=== PATIENT | female | born 1980 | race Caucasian/White ===

== ENCOUNTER 2020-09-23 19:37 | Emergency (ER) | payer MEDICAID ==
[~2020-09-23] VITALS: Ht 165.1 cm; Wt 104.3 kg
[2020-09-23] MEDS ORDERED: ONDANSETRON ODT 4 MG TAB PO ONE (20:30)
[2020-09-23] MEDS ORDERED: cefTRIAXone SOD 1,000 MG VL IM ONE (20:30)
[2020-09-23] MEDS ORDERED: MORPHINE SULF INJ 2 MG/ML SYRINGE 1ML IM ONE (20:30)
[2020-09-23] MEDS ORDERED: LIDOCAINE 1% HCL (LOCAL ANESTH.) INJ 20ML MDV ONE (20:36)
[2020-09-23] MEDS ORDERED: LIDOCAINE 1% HCL (LOCAL ANESTH.) INJ 20ML MDV IJ ONE (21:00)
[2020-09-23 23:49] VITALS: BP 133/88
== END 2020-09-23 23:53 | disposition home or self-care (01) ==
LOC: ER 19:37
DX: T24.231A Burn of second degree of right lower leg, initial encounter (principal); X08.8XXA Exposure to other specified smoke, fire and flames, initial encounter; Y93.89 Activity, other specified; Y92.89 Other specified places as the place of occurrence of the external cause; Y99.8 Other external cause status
CPT/HCPCS: 96372; 99284; J0696; J2001; J2270; Q0162

== ENCOUNTER 2021-08-14 09:18 | Inpatient (IN) | payer MEDICAID ==
[~2021-08-14] VITALS: Ht 162.6 cm; Wt 126.2 kg
[2021-08-14 10:21] LABS: Basophils # (auto) 0 10 ^3/uL (0-0.2); Basophils % (auto) 0.4 % (0.0-2.0); Eosinophils # (auto) 0 10 ^3/uL (0-0.8); Hematocrit 39.3 % (36.0-46.0); Hemoglobin 12.8 g/dL (12.2-16.2); Lymphocytes # (auto) 0.7 10 ^3/uL (0.4-5.4); Mean Corpuscular Hemoglobin 25.1 pg (28.0-32.0); Mean Corpuscular Hgb Conc. 32.4 g/dL (32.0-36.0); Mean Corpuscular Volume 77.3 fL (80.0-100.0); Monocytes # (auto) 0.3 10 ^3/uL (0-1.3); Monocytes % (auto) 5.8 % (0.0-12.0); Neutrophils # (auto) 3.6 10 ^3/uL (1.6-8.6); Neutrophils % (auto) 78.8 % (37.0-80.0); Nucleated Red Blood Cells % 0.3 %; Red Blood Cells 5.09 10^6/uL (4.0-5.20); Red Cell Distribution Width 15.8 % (11.8-14.3); White Blood Cell 4.6 10^3/uL (4.4-10.8)
[2021-08-14 10:27] LABS: Anion Gap 8 (5-15); Blood Urea Nitrogen 16 mg/dL (7-18); Calcium 8.1 mg/dL (8.5-10.1); Carbon Dioxide 23 mmol/L (21-32); Chloride 103 mmol/L (98-107); Glucose 200 mg/dL (74-106); Potassium 3.4 mmol/L (3.5-5.1); Sodium 134 mmol/L (136-145)
[2021-08-14 10:35] LABS: Alanine Aminotransferase 65 U/L (13-56); Alkaline Phosphatase 121 U/L (45-117); Aspartate Aminotransferase 100 U/L (15-37); BUN/Creatinine Ratio 16.3; Bilirubin, Total 0.6 mg/dL (0.2-1.0); GFR African American 81 mL/min; GFR Non-African American 67 mL/min; Total Protein 7.6 g/dL (6.4-8.2)
[2021-08-14 10:48] LABS: Urine WBC None Seen /hpf (0 - 5)
[2021-08-14] MEDS ORDERED: CHOLECALCIFEROL (VITD3) 2,000 UNIT CAP/TAB PO ONE (11:00)
[2021-08-14] MEDS ORDERED: cefTRIAXone 1GM/50ML D5W 50 ML IV ONE (11:00)
[2021-08-14] MEDS ORDERED: ASCORBIC ACID 500 MG TAB PO ONE (11:00)
[2021-08-14] MEDS ORDERED: AZITHROMYCIN 500MG/ 250ML 250 ML IV ONE (11:00)
[2021-08-14] MEDS ORDERED: DexAMETHasone SOD PHOS 10MG/1ML VIAL INJ IV ONE (11:00)
[2021-08-14] MEDS ORDERED: ZINC SULFATE 220mg CAP or TAB PO ONE (11:00)
[2021-08-14 11:01] LABS: INR 0.99 (0.9-1.15); Partial Thromboplastin Time 27.6 sec (23.6-33.0)
[2021-08-14 11:08] LABS: Urine Bacteria FEW /hpf (None Seen); Urine Blood Negative /uL (Negative); Urine Mucus FEW (None Seen); Urine Specific Gravity 1.022 (1.001-1.035)
[2021-08-14] MEDS ORDERED: POTASSIUM EFFERVESENT TAB 25 MEQ PO ONE (11:15)
[2021-08-14] MEDS ORDERED: NITROGLYCERIN 0.4 MG SL TAB SL PRN (12:15)
[2021-08-14] MEDS ORDERED: ALBUTEROL SULF HFA 90MCG INH 200DOSE IN PRN (12:15)
[2021-08-14] MEDS ORDERED: REMDESIVIR PER PHARMACY 0 ML IV SCH (12:15)
[2021-08-14] MEDS ORDERED: HYDROcodone-ACET 5/325MG TAB PO PRN (12:15)
[2021-08-14] MEDS ORDERED: ONDANSETRON HCL 4 MG/2 ML VIAL IV PRN (12:15)
[2021-08-14] MEDS ORDERED: MORPHINE SULFATE INJECTION 2 MG/ML SYRG IV PRN (12:15)
[2021-08-14] MEDS ORDERED: ACETAMINOPHEN 500 MG TAB PO PRN (12:15)
[2021-08-14] MEDS ORDERED: REMDESIVIR 200 MG in NS 210ml LOADING DOSE ADULT IV ONE (20:30)
[2021-08-14 22:00] VITALS: BP 96/64
[2021-08-14] MEDS: fentaNYL Drip 2500mCg/250mlNS 250 ML IV SCH (22:20)
[2021-08-14] MEDS: ENOXAPARIN SOD 40 MG/0.4 ML SYRINGE SC SCH (22:22)
[2021-08-15] VITALS (25 sets, daily range): BP systolic 92–196; BP diastolic 52–115
[2021-08-15] MEDS ORDERED: SIMV10TA84 PO (01:45)
[2021-08-15] MEDS ORDERED: CYCL-839 PO (01:45)
[2021-08-15] MEDS ORDERED: CHOL20007 PO (01:45)
[2021-08-15] MEDS ORDERED: OMEP20TA PO (01:45)
[2021-08-15] MEDS ORDERED: FERR-20 PO (01:45)
[2021-08-15] MEDS ORDERED: AMIT1TAB34 PO (01:45)
[2021-08-15] MEDS ORDERED: HYDR12.56 PO (01:45)
[2021-08-15] MEDS ORDERED: SULI150T38 PO (01:45)
[2021-08-15] MEDS ORDERED: ACE3T PO (01:45)
[2021-08-15] MEDS ORDERED: LORA-622 PO (01:45)
[2021-08-15] MEDS ORDERED: LEV100T PO (01:45)
[2021-08-15] MEDS ORDERED: MONT-8 PO (01:45)
[2021-08-15] MEDS ORDERED: TOPI25CA5 PO (01:45)
[2021-08-15 06:09] LABS: Basophils # (auto) 0 10 ^3/uL (0-0.2); Eosinophils # (auto) 0 10 ^3/uL (0-0.8); Eosinophils % (auto) 0.1 % (0.0-7.0); Lymphocytes # (auto) 0.8 10 ^3/uL (0.4-5.4); Nucleated Red Blood Cells % 0.1 %
[2021-08-15 06:12] LABS: Basophils % (auto) 0.6 % (0.0-2.0); Hematocrit 37.2 % (36.0-46.0); Hemoglobin 12.3 g/dL (12.2-16.2); Lymphocytes % (auto) 14.2 % (10.0-50.0); Mean Corpuscular Hemoglobin 25.7 pg (28.0-32.0); Mean Corpuscular Hgb Conc. 33.2 g/dL (32.0-36.0); Mean Corpuscular Volume 77.5 fL (80.0-100.0); Monocytes # (auto) 0.5 10 ^3/uL (0-1.3); Monocytes % (auto) 7.7 % (0.0-12.0); Neutrophils # (auto) 4.6 10 ^3/uL (1.6-8.6); Neutrophils % (auto) 77.4 % (37.0-80.0); White Blood Cell 5.9 10^3/uL (4.4-10.8)
[2021-08-15 06:25] LABS: Albumin 2.7 g/dL (3.4-5.0); Calcium 8.2 mg/dL (8.5-10.1); Potassium 3.4 mmol/L (3.5-5.1)
[2021-08-15 06:27] LABS: BUN/Creatinine Ratio 23.9
[2021-08-15 06:29] LABS: Bilirubin, Total 0.5 mg/dL (0.2-1.0)
[2021-08-15] MEDS: BUDESONIDE (INHALATION) 180 MCG IH IN SCH ×2 (07:35→22:00)
[2021-08-15] MEDS: cefTRIAXone 1GM/50ML D5W 50 ML IV SCH (09:34)
[2021-08-15] MEDS: AZITHROMYCIN 500MG/ 250ML 250 ML IV SCH (09:35)
[2021-08-15] MEDS: CHOLECALCIFEROL (VITD3) 2,000 UNIT CAP/TAB PO SCH (09:35)
[2021-08-15] MEDS: ASCORBIC ACID 1,000 MG TAB PO SCH (09:35)
[2021-08-15] MEDS: ENOXAPARIN SOD 40 MG/0.4 ML SYRINGE SC SCH ×2 (09:35→22:00)
[2021-08-15] MEDS: IVERMECTIN 3 MG TAB PO SCH (09:36)
[2021-08-15] MEDS: DexAMETHasone SOD PHOS 10MG/1ML VIAL INJ IV SCH (12:16)
[2021-08-15] MEDS: REMDESIVIR 100mg 100 MG in SODIUM CHL 0.9% 230 ML IV SCH (14:34)
[2021-08-15] MEDS: MORPHINE SULFATE INJECTION 2 MG/ML SYRG IV PRN (17:16)
[2021-08-15] MEDS ORDERED: ETOMIDATE (2MG/ML) 20ML VIAL IV ONE ×2 (18:41→19:41)
[2021-08-15] MEDS ORDERED: ROCURONIUM 10MG/ML 10ML VIAL IV ONE (18:41)
[2021-08-15] MEDS ORDERED: SUCCINYLCHOLINE CHLORIDE 20 MG/ML 10ML VIAL IV ONE (19:42)
[2021-08-15] MEDS ORDERED: fentaNYL Drip 2500mCg/250mlNS 250 ML IV ONE (20:12)
[2021-08-15] MEDS ORDERED: PROPOFOL 100 ML IV ONE (20:12)
[2021-08-15] MEDS ORDERED: NOREPINEPHRINE 8 MG/250ML KIT 250 ML IV ONE (21:31)
[2021-08-15] MEDS: MIDAZOLAM DRIP 50 mg/50mL 50 ML IV SCH (22:15)
[2021-08-16] VITALS (104 sets, daily range): BP systolic 82–252; BP diastolic 47–245
[2021-08-16] MEDS: FAMOTIDINE (10MG/ML) 2ML VL IV SCH ×3 (01:00→22:12)
[2021-08-16] MEDS: NOREPINEPHRINE 8 MG/250ML KIT 250 ML IV SCH ×2 (01:10→21:30)
[2021-08-16 04:47] LABS: Eosinophils # (auto) 0 10 ^3/uL (0-0.8); Mean Corpuscular Volume 77.6 fL (80.0-100.0); Monocytes # (auto) 0.6 10 ^3/uL (0-1.3); Neutrophils # (auto) 7.3 10 ^3/uL (1.6-8.6); White Blood Cell 8.9 10^3/uL (4.4-10.8)
[2021-08-16 04:51] LABS: Basophils # (auto) 0.1 10 ^3/uL (0-0.2); Basophils % (auto) 0.6 % (0.0-2.0); Hematocrit 35.8 % (36.0-46.0); Hemoglobin 11.8 g/dL (12.2-16.2); Lymphocytes % (auto) 10.8 % (10.0-50.0); Mean Corpuscular Hemoglobin 25.5 pg (28.0-32.0); Mean Corpuscular Hgb Conc. 32.9 g/dL (32.0-36.0); Monocytes % (auto) 6.8 % (0.0-12.0); Neutrophils % (auto) 81.8 % (37.0-80.0); Red Blood Cells 4.62 10^6/uL (4.0-5.20); Red Cell Distribution Width 15.9 % (11.8-14.3)
[2021-08-16 05:08] LABS: Potassium 3.4 mmol/L (3.5-5.1)
[2021-08-16 05:21] LABS: Albumin 2.7 g/dL (3.4-5.0); BUN/Creatinine Ratio 24.7; Bilirubin, Total 0.6 mg/dL (0.2-1.0); CRP High Sensitivity 5.15 mg/dL (< 0.3); Magnesium 2.8 mg/dL (1.6-2.6); Total Protein 6.9 g/dL (6.4-8.2)
[2021-08-16] MEDS: fentaNYL Drip 2500mCg/250mlNS 250 ML IV SCH ×2 (06:40→20:15)
[2021-08-16] MEDS: PROPOFOL 100 ML IV SCH (06:42)
[2021-08-16] MEDS: cefTRIAXone 1GM/50ML D5W 50 ML IV SCH (09:30)
[2021-08-16] MEDS: AZITHROMYCIN 500MG/ 250ML 250 ML IV SCH (10:00)
[2021-08-16] MEDS ORDERED: PANTOPRAZOLE 40 MG/10 ML VIAL INJ IV SCH (10:00)
[2021-08-16] MEDS: CHOLECALCIFEROL (VITD3) 2,000 UNIT CAP/TAB PO SCH (10:00)
[2021-08-16] MEDS: ASCORBIC ACID 1,000 MG TAB PO SCH (10:00)
[2021-08-16] MEDS: IVERMECTIN 3 MG TAB PO SCH (10:00)
[2021-08-16] MEDS: DexAMETHasone SOD PHOS 10MG/1ML VIAL INJ IV SCH (10:00)
[2021-08-16] MEDS: ENOXAPARIN SOD 40 MG/0.4 ML SYRINGE SC SCH ×2 (10:00→22:12)
[2021-08-16] MEDS: MIDAZOLAM DRIP 50 mg/50mL 50 ML IV SCH ×2 (11:00→22:15)
[2021-08-16] MEDS: REMDESIVIR 100mg 100 MG in SODIUM CHL 0.9% 230 ML IV SCH (17:48)
[2021-08-16] MEDS: BUDESONIDE (INHALATION) 0.5 MG/2 ML NEB NEB SCH (19:14)
[2021-08-16] MEDS: ALBUTEROL SULF 2.5 MG/0.5ML(0.5%) NEB SOLN NEB PRN (19:14)
[2021-08-17] VITALS (80 sets, daily range): BP systolic 89–165; BP diastolic 42–98
[2021-08-17] MEDS: PROPOFOL 100 ML IV SCH ×3 (01:08→14:30)
[2021-08-17 04:02] LABS: Albumin 2.3 g/dL (3.4-5.0); BUN/Creatinine Ratio 28.4; Calcium 7.6 mg/dL (8.5-10.1); Potassium 3.6 mmol/L (3.5-5.1)
[2021-08-17 04:05] LABS: Bilirubin, Total 0.6 mg/dL (0.2-1.0); Total Protein 6.4 g/dL (6.4-8.2)
[2021-08-17] MEDS: BUDESONIDE (INHALATION) 0.5 MG/2 ML NEB NEB SCH ×2 (07:33→22:12)
[2021-08-17] MEDS: ALBUTEROL SULF 2.5 MG/0.5ML(0.5%) NEB SOLN NEB PRN (07:33)
[2021-08-17] MEDS: cefTRIAXone 1GM/50ML D5W 50 ML IV SCH (08:10)
[2021-08-17] MEDS: fentaNYL Drip 2500mCg/250mlNS 250 ML IV SCH (08:18)
[2021-08-17] MEDS: FERROUS SULFATE 325mg EC TAB PO SCH (10:00)
[2021-08-17] MEDS: IVERMECTIN 3 MG TAB PO SCH (10:00)
[2021-08-17] MEDS: DexAMETHasone SOD PHOS 10MG/1ML VIAL INJ IV SCH (11:14)
[2021-08-17] MEDS: AZITHROMYCIN 500MG/ 250ML 250 ML IV SCH (11:16)
[2021-08-17] MEDS: ASCORBIC ACID 1,000 MG TAB PO SCH (11:17)
[2021-08-17] MEDS: CHOLECALCIFEROL (VITD3) 2,000 UNIT CAP/TAB PO SCH (11:17)
[2021-08-17] MEDS: ENOXAPARIN SOD 40 MG/0.4 ML SYRINGE SC SCH ×2 (11:18→21:50)
[2021-08-17] MEDS: FAMOTIDINE (10MG/ML) 2ML VL IV SCH ×2 (14:30→21:49)
[2021-08-17] MEDS: REMDESIVIR 100mg 100 MG in SODIUM CHL 0.9% 230 ML IV SCH (17:17)
[2021-08-17] MEDS: LEVOTHYROXINE SODIUM 100 MCG TAB PO SCH (17:17)
[2021-08-17] MEDS ORDERED: DEXTROSE (50%) 50ML SYRG IV PRN (19:45)
[2021-08-17] MEDS: NOREPINEPHRINE 8 MG/250ML KIT 250 ML IV SCH (21:30)
[2021-08-17] MEDS: PRAVASTATIN SODIUM 20 MG TAB PO SCH (21:49)
[2021-08-17] MEDS: INSULIN LANTUS (GLARGINE) 1 /0.01ml (100units/ml) SC SCH (21:49)
[2021-08-18] VITALS (62 sets, daily range): BP systolic 75–131; BP diastolic 39–81
[2021-08-18] MEDS: ACCU-CHEK COMFORT CURVE STRIP VI SCH ×4 (00:06→19:56)
[2021-08-18] MEDS: InsuLIN REG 1unit/0.01ml Soln (100units/ml) SC SCH ×4 (00:10→18:00)
[2021-08-18] MEDS: ACETAMINOPHEN 500 MG TAB PO PRN (00:37)
[2021-08-18] MEDS: MIDAZOLAM DRIP 50 mg/50mL 50 ML IV SCH ×3 (01:41→15:13)
[2021-08-18] MEDS: fentaNYL Drip 2500mCg/250mlNS 250 ML IV SCH ×2 (01:47→10:40)
[2021-08-18] MEDS: PROPOFOL 100 ML IV SCH ×3 (02:13→15:12)
[2021-08-18 04:22] LABS: Basophils # (auto) 0.1 10 ^3/uL (0-0.2); Basophils % (auto) 0.8 % (0.0-2.0); Eosinophils # (auto) 0.2 10 ^3/uL (0-0.8); Eosinophils % (auto) 2.3 % (0.0-7.0); Hematocrit 33.1 % (36.0-46.0); Hemoglobin 10.6 g/dL (12.2-16.2); Lymphocytes # (auto) 1.1 10 ^3/uL (0.4-5.4); Lymphocytes % (auto) 10.3 % (10.0-50.0); Mean Corpuscular Hemoglobin 25.3 pg (28.0-32.0); Mean Corpuscular Volume 79.1 fL (80.0-100.0); Monocytes # (auto) 0.3 10 ^3/uL (0-1.3); Monocytes % (auto) 2.6 % (0.0-12.0); Neutrophils # (auto) 8.6 10 ^3/uL (1.6-8.6); Nucleated Red Blood Cells % 0.1 %; Red Blood Cells 4.19 10^6/uL (4.0-5.20); Red Cell Distribution Width 15.7 % (11.8-14.3); White Blood Cell 10.2 10^3/uL (4.4-10.8)
[2021-08-18 04:43] LABS: Albumin 2.1 g/dL (3.4-5.0); Calcium 7.2 mg/dL (8.5-10.1); Magnesium 2.9 mg/dL (1.6-2.6)
[2021-08-18 04:52] LABS: BUN/Creatinine Ratio 35.9; Bilirubin, Total 0.5 mg/dL (0.2-1.0); CRP High Sensitivity 9.26 mg/dL (< 0.3)
[2021-08-18 05:21] LABS: Potassium 2.8 mmol/L (3.5-5.1)
[2021-08-18] MEDS: MORPHINE SULFATE INJECTION 2 MG/ML SYRG IV PRN (05:28)
[2021-08-18] MEDS: BUDESONIDE (INHALATION) 0.5 MG/2 ML NEB NEB SCH ×2 (06:11→22:28)
[2021-08-18] MEDS: ALBUTEROL SULF 2.5 MG/0.5ML(0.5%) NEB SOLN NEB PRN (06:11)
[2021-08-18] MEDS ORDERED: POTASSIUM CHL 20MEQ/100ML 100 ML IV ONE (06:23)
[2021-08-18] MEDS: LEVOTHYROXINE SODIUM 100 MCG TAB PO SCH (06:31)
[2021-08-18] MEDS: POTASSIUM CHL 20MEQ/100ML 100 ML IV SCH ×3 (07:24→17:56)
[2021-08-18] MEDS: FERROUS SULFATE 325mg EC TAB PO SCH (10:00)
[2021-08-18] MEDS ORDERED: ROCURONIUM 10MG/ML 10ML VIAL IV ONE ×2 (10:08→11:44)
[2021-08-18] MEDS: cefTRIAXone 1GM/50ML D5W 50 ML IV SCH (10:53)
[2021-08-18] MEDS: FAMOTIDINE (10MG/ML) 2ML VL IV SCH ×2 (10:54→22:24)
[2021-08-18] MEDS: DexAMETHasone SOD PHOS 10MG/1ML VIAL INJ IV SCH (10:54)
[2021-08-18] MEDS: ENOXAPARIN SOD 40 MG/0.4 ML SYRINGE SC SCH (10:54)
[2021-08-18] MEDS: IVERMECTIN 3 MG TAB PO SCH (10:55)
[2021-08-18] MEDS: CHOLECALCIFEROL (VITD3) 2,000 UNIT CAP/TAB PO SCH (10:56)
[2021-08-18] MEDS: AZITHROMYCIN 500MG/ 250ML 250 ML IV SCH (10:59)
[2021-08-18] MEDS: ASCORBIC ACID 1,000 MG TAB PO SCH (11:00)
[2021-08-18] MEDS: ROCURONIUM BROMIDE 1,000 MG in D5W 5% 150 ML IV SCH (15:10)
[2021-08-18] MEDS ORDERED: FUROSEMIDE 40 MG/4 ML VIAL IV ONE (17:15)
[2021-08-18] MEDS: REMDESIVIR 100mg 100 MG in SODIUM CHL 0.9% 230 ML IV SCH (19:54)
[2021-08-18] MEDS ORDERED: SODIUM BICARBONATE 8.4 % INJ 50ML VIAL IV ONE (20:30)
[2021-08-18] MEDS: NOREPINEPHRINE 8 MG/250ML KIT 250 ML IV SCH (21:30)
[2021-08-18] MEDS: PRAVASTATIN SODIUM 20 MG TAB PO SCH (22:24)
[2021-08-18] MEDS: ENOXAPARIN SOD 100 MG/1 ML SYRINGE SC SCH (22:25)
[2021-08-18] MEDS: INSULIN LANTUS (GLARGINE) 1 /0.01ml (100units/ml) SC SCH (22:25)
[2021-08-19] VITALS (106 sets, daily range): BP systolic 83–160; BP diastolic 22–108
[2021-08-19] MEDS: InsuLIN REG 1unit/0.01ml Soln (100units/ml) SC SCH ×4 (01:04→17:55)
[2021-08-19] MEDS ORDERED: ATRACURIUM BESYLATE (10 MG/ ML) 10 ML VIAL ONE (02:18)
[2021-08-19 04:58] LABS: Basophils # (auto) 0 10 ^3/uL (0-0.2); Eosinophils # (auto) 0.3 10 ^3/uL (0-0.8); Eosinophils % (auto) 2.5 % (0.0-7.0); Hemoglobin 10.8 g/dL (12.2-16.2); Lymphocytes # (auto) 0.5 10 ^3/uL (0.4-5.4); Red Cell Distribution Width 15.5 % (11.8-14.3)
[2021-08-19 04:59] LABS: Basophils % (auto) 0.2 % (0.0-2.0); Hematocrit 33.3 % (36.0-46.0); Lymphocytes % (auto) 4.7 % (10.0-50.0); Mean Corpuscular Hemoglobin 25.5 pg (28.0-32.0); Mean Corpuscular Hgb Conc. 32.4 g/dL (32.0-36.0); Mean Corpuscular Volume 78.7 fL (80.0-100.0); Monocytes # (auto) 0.3 10 ^3/uL (0-1.3); Monocytes % (auto) 2.5 % (0.0-12.0); Neutrophils # (auto) 9.3 10 ^3/uL (1.6-8.6); Neutrophils % (auto) 90.1 % (37.0-80.0); Nucleated Red Blood Cells % 0.7 %; Red Blood Cells 4.23 10^6/uL (4.0-5.20); White Blood Cell 10.3 10^3/uL (4.4-10.8)
[2021-08-19 05:13] LABS: Albumin 1.9 g/dL (3.4-5.0); Calcium 6.9 mg/dL (8.5-10.1); Magnesium 2.6 mg/dL (1.6-2.6); Potassium 3.6 mmol/L (3.5-5.1)
[2021-08-19 05:24] LABS: Bilirubin, Total 0.5 mg/dL (0.2-1.0); CRP High Sensitivity 18.1 mg/dL (< 0.3); Total Protein 6.1 g/dL (6.4-8.2)
[2021-08-19 05:29] LABS: BUN/Creatinine Ratio 29.6
[2021-08-19] MEDS: ACCU-CHEK COMFORT CURVE STRIP VI SCH ×4 (06:00→17:52)
[2021-08-19] MEDS: ALBUTEROL SULF 2.5 MG/0.5ML(0.5%) NEB SOLN NEB PRN ×2 (06:27→19:18)
[2021-08-19] MEDS: BUDESONIDE (INHALATION) 0.5 MG/2 ML NEB NEB SCH ×2 (06:27→19:18)
[2021-08-19] MEDS: ACETAMINOPHEN 500 MG TAB PO PRN (06:33)
[2021-08-19] MEDS: ROCURONIUM BROMIDE 1,000 MG in D5W 5% 150 ML IV SCH (07:09)
[2021-08-19] MEDS: LEVOTHYROXINE SODIUM 100 MCG TAB PO SCH (07:45)
[2021-08-19] MEDS: PROPOFOL 100 ML IV SCH ×3 (09:18→17:34)
[2021-08-19] MEDS: MIDAZOLAM DRIP 50 mg/50mL 50 ML IV SCH ×2 (09:19→15:06)
[2021-08-19] MEDS: FAMOTIDINE (10MG/ML) 2ML VL IV SCH ×2 (09:19→21:06)
[2021-08-19] MEDS: DexAMETHasone SOD PHOS 10MG/1ML VIAL INJ IV SCH (09:19)
[2021-08-19] MEDS: cefTRIAXone 1GM/50ML D5W 50 ML IV SCH (09:20)
[2021-08-19] MEDS: IVERMECTIN 3 MG TAB PO SCH (09:20)
[2021-08-19] MEDS: FERROUS SULFATE 325mg EC TAB PO SCH (09:21)
[2021-08-19] MEDS: CHOLECALCIFEROL (VITD3) 2,000 UNIT CAP/TAB PO SCH (09:21)
[2021-08-19] MEDS: ASCORBIC ACID 1,000 MG TAB PO SCH (09:21)
[2021-08-19] MEDS: ENOXAPARIN SOD 100 MG/1 ML SYRINGE SC SCH ×2 (09:21→21:07)
[2021-08-19] MEDS: fentaNYL Drip 2500mCg/250mlNS 250 ML IV SCH ×2 (09:27→21:13)
[2021-08-19] MEDS: AZITHROMYCIN 500MG/ 250ML 250 ML IV SCH (10:30)
[2021-08-19] MEDS: NOREPINEPHRINE 8 MG/250ML KIT 250 ML IV SCH (16:30)
[2021-08-19] MEDS: PRAVASTATIN SODIUM 20 MG TAB PO SCH (21:07)
[2021-08-19] MEDS: INSULIN LANTUS (GLARGINE) 1 /0.01ml (100units/ml) SC SCH (21:08)
[2021-08-20] VITALS (106 sets, daily range): BP systolic 86–133; BP diastolic 47–76
[2021-08-20] MEDS: InsuLIN REG 1unit/0.01ml Soln (100units/ml) SC SCH ×4 (01:58→18:00)
[2021-08-20] MEDS ORDERED: ROCURONIUM 10MG/ML 10ML VIAL IV ONE ×2 (02:16→02:17)
[2021-08-20 03:23] LABS: Basophils # (auto) 0.1 10 ^3/uL (0-0.2); Eosinophils # (auto) 0 10 ^3/uL (0-0.8); Hemoglobin 10.4 g/dL (12.2-16.2); Lymphocytes # (auto) 0.4 10 ^3/uL (0.4-5.4); Monocytes # (auto) 0.3 10 ^3/uL (0-1.3); Neutrophils % (auto) 92.1 % (37.0-80.0); Nucleated Red Blood Cells % 0.1 %
[2021-08-20 03:25] LABS: Basophils % (auto) 0.5 % (0.0-2.0); Eosinophils % (auto) 0.2 % (0.0-7.0); Hematocrit 31.5 % (36.0-46.0); Lymphocytes % (auto) 4.4 % (10.0-50.0); Mean Corpuscular Hemoglobin 25.8 pg (28.0-32.0); Mean Corpuscular Hgb Conc. 32.9 g/dL (32.0-36.0); Mean Corpuscular Volume 78.3 fL (80.0-100.0); Monocytes % (auto) 2.8 % (0.0-12.0); Neutrophils # (auto) 9.3 10 ^3/uL (1.6-8.6); Red Blood Cells 4.02 10^6/uL (4.0-5.20); White Blood Cell 10.2 10^3/uL (4.4-10.8)
[2021-08-20 03:43] LABS: Albumin 1.8 g/dL (3.4-5.0); BUN/Creatinine Ratio 27.4; Calcium 6.8 mg/dL (8.5-10.1); Potassium 4.1 mmol/L (3.5-5.1)
[2021-08-20 03:45] LABS: Bilirubin, Total 0.4 mg/dL (0.2-1.0); Total Protein 6.2 g/dL (6.4-8.2)
[2021-08-20 04:17] LABS: CRP High Sensitivity 18.2 mg/dL (< 0.3)
[2021-08-20] MEDS: ACCU-CHEK COMFORT CURVE STRIP VI SCH ×4 (06:00→18:00)
[2021-08-20] MEDS: ROCURONIUM BROMIDE 1,000 MG in D5W 5% 150 ML IV SCH ×2 (06:33→23:41)
[2021-08-20] MEDS: LEVOTHYROXINE SODIUM 100 MCG TAB PO SCH (06:33)
[2021-08-20] MEDS: ALBUTEROL SULF 2.5 MG/0.5ML(0.5%) NEB SOLN NEB PRN ×2 (06:37→19:28)
[2021-08-20] MEDS: BUDESONIDE (INHALATION) 0.5 MG/2 ML NEB NEB SCH ×2 (06:37→19:28)
[2021-08-20] MEDS: fentaNYL Drip 2500mCg/250mlNS 250 ML IV SCH (06:40)
[2021-08-20] MEDS: cefTRIAXone 1GM/50ML D5W 50 ML IV SCH (09:00)
[2021-08-20] MEDS: FERROUS SULFATE 325mg EC TAB PO SCH (10:00)
[2021-08-20] MEDS: CHOLECALCIFEROL (VITD3) 2,000 UNIT CAP/TAB PO SCH (10:00)
[2021-08-20] MEDS: ENOXAPARIN SOD 100 MG/1 ML SYRINGE SC SCH ×2 (10:00→22:42)
[2021-08-20] MEDS: ASCORBIC ACID 1,000 MG TAB PO SCH (10:00)
[2021-08-20] MEDS: FAMOTIDINE (10MG/ML) 2ML VL IV SCH ×2 (10:00→22:42)
[2021-08-20] MEDS: DexAMETHasone SOD PHOS 10MG/1ML VIAL INJ IV SCH (10:00)
[2021-08-20] MEDS: AZITHROMYCIN 500MG/ 250ML 250 ML IV SCH (10:00)
[2021-08-20] MEDS: MIDAZOLAM DRIP 50 mg/50mL 50 ML IV SCH (10:48)
[2021-08-20] MEDS: NOREPINEPHRINE 8 MG/250ML KIT 250 ML IV SCH (21:30)
[2021-08-20] MEDS: PRAVASTATIN SODIUM 20 MG TAB PO SCH (22:42)
[2021-08-20] MEDS: INSULIN LANTUS (GLARGINE) 1 /0.01ml (100units/ml) SC SCH (22:44)
[2021-08-21] VITALS (107 sets, daily range): BP systolic 86–179; BP diastolic 44–149
[2021-08-21] MEDS: ACCU-CHEK COMFORT CURVE STRIP VI SCH ×4 (00:23→18:00)
[2021-08-21] MEDS: InsuLIN REG 1unit/0.01ml Soln (100units/ml) SC SCH ×4 (00:24→18:00)
[2021-08-21] MEDS: PROPOFOL 100 ML IV SCH (01:59)
[2021-08-21 04:53] LABS: Potassium 4.2 mmol/L (3.5-5.1)
[2021-08-21 05:00] LABS: Albumin 1.8 g/dL (3.4-5.0); BUN/Creatinine Ratio 35.1; Magnesium 3.6 mg/dL (1.6-2.6)
[2021-08-21 05:07] LABS: Bilirubin, Total 0.2 mg/dL (0.2-1.0); CRP High Sensitivity 7.08 mg/dL (< 0.3)
[2021-08-21 05:16] LABS: Hemoglobin 9.2 g/dL (12.2-16.2); Mean Corpuscular Volume 78.8 fL (80.0-100.0)
[2021-08-21 05:18] LABS: Basophils # (auto) 0 10 ^3/uL (0-0.2); Basophils % (auto) 0.2 % (0.0-2.0); Eosinophils # (auto) 0 10 ^3/uL (0-0.8); Eosinophils % (auto) 0.4 % (0.0-7.0); Hematocrit 28.1 % (36.0-46.0); Lymphocytes # (auto) 0.6 10 ^3/uL (0.4-5.4); Lymphocytes % (auto) 6.5 % (10.0-50.0); Mean Corpuscular Hemoglobin 25.9 pg (28.0-32.0); Mean Corpuscular Hgb Conc. 32.8 g/dL (32.0-36.0); Monocytes # (auto) 0.3 10 ^3/uL (0-1.3); Monocytes % (auto) 3.3 % (0.0-12.0); Neutrophils # (auto) 8.5 10 ^3/uL (1.6-8.6); Neutrophils % (auto) 89.6 % (37.0-80.0); Nucleated Red Blood Cells % 0.3 %; Red Blood Cells 3.56 10^6/uL (4.0-5.20); Red Cell Distribution Width 15.7 % (11.8-14.3); White Blood Cell 9.5 10^3/uL (4.4-10.8)
[2021-08-21] MEDS: LEVOTHYROXINE SODIUM 100 MCG TAB PO SCH (06:15)
[2021-08-21] MEDS: ALBUTEROL SULF 2.5 MG/0.5ML(0.5%) NEB SOLN NEB PRN (06:16)
[2021-08-21] MEDS: BUDESONIDE (INHALATION) 0.5 MG/2 ML NEB NEB SCH ×2 (06:16→18:17)
[2021-08-21] MEDS: fentaNYL Drip 2500mCg/250mlNS 250 ML IV SCH ×2 (06:17→22:45)
[2021-08-21] MEDS: MIDAZOLAM DRIP 50 mg/50mL 50 ML IV SCH (09:10)
[2021-08-21] MEDS: cefTRIAXone 1GM/50ML D5W 50 ML IV SCH (09:11)
[2021-08-21] MEDS: DexAMETHasone SOD PHOS 10MG/1ML VIAL INJ IV SCH (09:13)
[2021-08-21] MEDS: ASCORBIC ACID 1,000 MG TAB PO SCH (09:13)
[2021-08-21] MEDS: CHOLECALCIFEROL (VITD3) 2,000 UNIT CAP/TAB PO SCH (09:13)
[2021-08-21] MEDS: ENOXAPARIN SOD 100 MG/1 ML SYRINGE SC SCH ×2 (09:14→23:27)
[2021-08-21] MEDS: FAMOTIDINE (10MG/ML) 2ML VL IV SCH ×2 (09:14→23:26)
[2021-08-21] MEDS: FERROUS SULFATE 325mg EC TAB PO SCH (09:14)
[2021-08-21] MEDS: AZITHROMYCIN 500MG/ 250ML 250 ML IV SCH (10:11)
[2021-08-21] MEDS: ROCURONIUM BROMIDE 1,000 MG in D5W 5% 150 ML IV SCH (18:51)
[2021-08-21] MEDS: NOREPINEPHRINE 8 MG/250ML KIT 250 ML IV SCH (21:30)
[2021-08-21] MEDS: ROCURONIUM 10MG/ML 10ML VIAL IV PRN (22:33)
[2021-08-21] MEDS: INSULIN LANTUS (GLARGINE) 1 /0.01ml (100units/ml) SC SCH (23:27)
[2021-08-21] MEDS: PRAVASTATIN SODIUM 20 MG TAB PO SCH (23:27)
[2021-08-22] VITALS (103 sets, daily range): BP systolic 95–131; BP diastolic 50–79
[2021-08-22] MEDS: ALBUTEROL SULF 2.5 MG/0.5ML(0.5%) NEB SOLN NEB PRN ×2 (00:49→06:05)
[2021-08-22] MEDS: InsuLIN REG 1unit/0.01ml Soln (100units/ml) SC SCH ×4 (00:51→18:07)
[2021-08-22] MEDS: fentaNYL Drip 2500mCg/250mlNS 250 ML IV SCH ×3 (05:07→18:07)
[2021-08-22] MEDS: PROPOFOL 100 ML IV SCH ×6 (05:08→19:21)
[2021-08-22 05:23] LABS: Eosinophils # (auto) 0.1 10 ^3/uL (0-0.8); Hemoglobin 9.4 g/dL (12.2-16.2); Lymphocytes # (auto) 0.9 10 ^3/uL (0.4-5.4); Mean Corpuscular Hgb Conc. 32.1 g/dL (32.0-36.0); Nucleated Red Blood Cells % 0.1 %; Red Cell Distribution Width 15.8 % (11.8-14.3)
[2021-08-22 05:25] LABS: Basophils # (auto) 0.5 10 ^3/uL (0-0.2); Basophils % (auto) 4.7 % (0.0-2.0); Eosinophils % (auto) 1.1 % (0.0-7.0); Hematocrit 29.2 % (36.0-46.0); Lymphocytes % (auto) 8.7 % (10.0-50.0); Mean Corpuscular Hemoglobin 25.5 pg (28.0-32.0); Mean Corpuscular Volume 79.3 fL (80.0-100.0); Monocytes # (auto) 0.7 10 ^3/uL (0-1.3); Monocytes % (auto) 6.6 % (0.0-12.0); Neutrophils % (auto) 78.9 % (37.0-80.0); Red Blood Cells 3.69 10^6/uL (4.0-5.20); White Blood Cell 10.2 10^3/uL (4.4-10.8)
[2021-08-22 05:32] LABS: Albumin 2.1 g/dL (3.4-5.0); Calcium 7.3 mg/dL (8.5-10.1); Potassium 4.3 mmol/L (3.5-5.1)
[2021-08-22 05:41] LABS: BUN/Creatinine Ratio 44.1; Bilirubin, Total 0.3 mg/dL (0.2-1.0); CRP High Sensitivity 2.66 mg/dL (< 0.3); Total Protein 6.7 g/dL (6.4-8.2)
[2021-08-22] MEDS: ACCU-CHEK COMFORT CURVE STRIP VI SCH ×4 (06:00→18:06)
[2021-08-22] MEDS: BUDESONIDE (INHALATION) 0.5 MG/2 ML NEB NEB SCH ×2 (06:05→18:32)
[2021-08-22] MEDS: LEVOTHYROXINE SODIUM 100 MCG TAB PO SCH (06:47)
[2021-08-22] MEDS: cefTRIAXone 1GM/50ML D5W 50 ML IV SCH (07:57)
[2021-08-22] MEDS: FAMOTIDINE (10MG/ML) 2ML VL IV SCH ×2 (10:23→21:18)
[2021-08-22] MEDS: DexAMETHasone SOD PHOS 10MG/1ML VIAL INJ IV SCH (10:23)
[2021-08-22] MEDS: AZITHROMYCIN 500MG/ 250ML 250 ML IV SCH (10:24)
[2021-08-22] MEDS: FERROUS SULFATE 325mg EC TAB PO SCH (10:24)
[2021-08-22] MEDS: ASCORBIC ACID 1,000 MG TAB PO SCH (10:24)
[2021-08-22] MEDS: ENOXAPARIN SOD 100 MG/1 ML SYRINGE SC SCH ×2 (10:24→21:18)
[2021-08-22] MEDS: CHOLECALCIFEROL (VITD3) 2,000 UNIT CAP/TAB PO SCH (10:24)
[2021-08-22] MEDS: ROCURONIUM 10MG/ML 10ML VIAL IV PRN ×2 (12:23→16:00)
[2021-08-22] MEDS: MIDAZOLAM DRIP 50 mg/50mL 50 ML IV SCH (13:20)
[2021-08-22] MEDS ORDERED: TPN PER PHARMACY 0 ML IV SCH (14:45)
[2021-08-22] MEDS: ROCURONIUM BROMIDE 1,000 MG in D5W 5% 150 ML IV SCH (14:45)
[2021-08-22] MEDS ORDERED: FUROSEMIDE 40 MG/4 ML VIAL IV ONE (19:45)
[2021-08-22] MEDS ORDERED: AMINO ACID INFUSION IN D10W 1,000 ML IV NR (20:00)
[2021-08-22] MEDS: PRAVASTATIN SODIUM 20 MG TAB PO SCH (21:18)
[2021-08-22] MEDS: NOREPINEPHRINE 8 MG/250ML KIT 250 ML IV SCH (21:18)
[2021-08-22] MEDS: INSULIN LANTUS (GLARGINE) 1 /0.01ml (100units/ml) SC SCH (21:57)
[2021-08-23] VITALS (104 sets, daily range): BP systolic -31–151; BP diastolic 44–138
[2021-08-23] MEDS: MIDAZOLAM DRIP 50 mg/50mL 50 ML IV SCH ×4 (00:24→16:36)
[2021-08-23] MEDS: ACCU-CHEK COMFORT CURVE STRIP VI SCH ×4 (00:25→18:00)
[2021-08-23] MEDS: InsuLIN REG 1unit/0.01ml Soln (100units/ml) SC SCH ×4 (00:30→18:00)
[2021-08-23] MEDS: ROCURONIUM 10MG/ML 10ML VIAL IV PRN ×2 (01:08→06:08)
[2021-08-23] MEDS: fentaNYL Drip 2500mCg/250mlNS 250 ML IV SCH ×3 (02:55→18:46)
[2021-08-23] MEDS: PROPOFOL 100 ML IV SCH ×6 (03:19→17:48)
[2021-08-23 05:14] LABS: Hematocrit 27.8 % (36.0-46.0); Hemoglobin 8.9 g/dL (12.2-16.2); Mean Corpuscular Hemoglobin 25.4 pg (28.0-32.0); Mean Corpuscular Hgb Conc. 32.1 g/dL (32.0-36.0); Mean Corpuscular Volume 79.3 fL (80.0-100.0); Red Blood Cells 3.51 10^6/uL (4.0-5.20); Red Cell Distribution Width 15.7 % (11.8-14.3); White Blood Cell 9.1 10^3/uL (4.4-10.8)
[2021-08-23 05:33] LABS: Basophils % (manual) 0 (0.0-2.0); Blast Cells 0; Metamyelocytes % 0; Promyelocytes % 0; Reactive Lymphocytes 0
[2021-08-23 05:39] LABS: Calcium 7.1 mg/dL (8.5-10.1); Magnesium 3.5 mg/dL (1.6-2.6)
[2021-08-23 05:40] LABS: Phosphorus 3.4 mg/dL (2.5-4.90); Pre Albumin 22.4 mg/dL (20.0-40.0)
[2021-08-23 05:48] LABS: Bilirubin, Total 0.3 mg/dL (0.2-1.0); CRP High Sensitivity 5.64 mg/dL (< 0.3); Total Protein 6.5 g/dL (6.4-8.2)
[2021-08-23] MEDS: ALBUTEROL SULF 2.5 MG/0.5ML(0.5%) NEB SOLN NEB PRN (06:12)
[2021-08-23] MEDS: BUDESONIDE (INHALATION) 0.5 MG/2 ML NEB NEB SCH ×2 (06:12→22:25)
[2021-08-23] MEDS: LEVOTHYROXINE SODIUM 100 MCG TAB PO SCH (06:32)
[2021-08-23 06:46] LABS: Band Neutrophils % (manual) 12; Eosinophils % (manual) 3 (0-7); Lymphocytes % (manual) 10 (10.0-50.0); Monocytes % (manual) 5 (0-12); Myelocytes % 6
[2021-08-23] MEDS: cefTRIAXone 1GM/50ML D5W 50 ML IV SCH (08:41)
[2021-08-23] MEDS: ENOXAPARIN SOD 100 MG/1 ML SYRINGE SC SCH ×2 (09:23→21:54)
[2021-08-23] MEDS: AZITHROMYCIN 500MG/ 250ML 250 ML IV SCH (09:23)
[2021-08-23] MEDS: FAMOTIDINE (10MG/ML) 2ML VL IV SCH ×2 (09:24→21:54)
[2021-08-23] MEDS: DexAMETHasone SOD PHOS 10MG/1ML VIAL INJ IV SCH (09:24)
[2021-08-23] MEDS: CHOLECALCIFEROL (VITD3) 2,000 UNIT CAP/TAB PO SCH (09:25)
[2021-08-23] MEDS: ASCORBIC ACID 1,000 MG TAB PO SCH (09:25)
[2021-08-23] MEDS: FERROUS SULFATE 325mg EC TAB PO SCH (09:26)
[2021-08-23] MEDS: ROCURONIUM BROMIDE 1,000 MG in D5W 5% 150 ML IV SCH (10:39)
[2021-08-23] MEDS: ACETAMINOPHEN 500 MG TAB PO PRN (12:46)
[2021-08-23] MEDS: NOREPINEPHRINE 8 MG/250ML KIT 250 ML IV SCH (21:30)
[2021-08-23] MEDS: TPN PER PHARMACY IV NR ×8 (21:37)
[2021-08-23] MEDS: PRAVASTATIN SODIUM 20 MG TAB PO SCH (21:54)
[2021-08-23] MEDS: INSULIN LANTUS (GLARGINE) 1 /0.01ml (100units/ml) SC SCH (22:13)
[2021-08-24] VITALS (107 sets, daily range): BP systolic 80–158; BP diastolic 43–152
[2021-08-24] MEDS: MIDAZOLAM DRIP 50 mg/50mL 50 ML IV SCH ×4 (01:14→18:19)
[2021-08-24] MEDS: ACCU-CHEK COMFORT CURVE STRIP VI SCH ×4 (01:37→17:52)
[2021-08-24] MEDS: InsuLIN REG 1unit/0.01ml Soln (100units/ml) SC SCH ×4 (01:37→17:53)
[2021-08-24 05:05] LABS: Hematocrit 29.4 % (36.0-46.0); Red Blood Cells 3.63 10^6/uL (4.0-5.20)
[2021-08-24 05:07] LABS: Hemoglobin 9.1 g/dL (12.2-16.2); Mean Corpuscular Hemoglobin 25.1 pg (28.0-32.0); Red Cell Distribution Width 15.9 % (11.8-14.3); White Blood Cell 10.7 10^3/uL (4.4-10.8)
[2021-08-24 05:28] LABS: Albumin 1.9 g/dL (3.4-5.0); Calcium 7.4 mg/dL (8.5-10.1); Magnesium 3.2 mg/dL (1.6-2.6); Potassium 4.2 mmol/L (3.5-5.1)
[2021-08-24 05:40] LABS: Bilirubin, Total 0.3 mg/dL (0.2-1.0); CRP High Sensitivity 6.32 mg/dL (< 0.3); Phosphorus 3.4 mg/dL (2.5-4.90); Total Protein 6.5 g/dL (6.4-8.2)
[2021-08-24] MEDS: fentaNYL Drip 2500mCg/250mlNS 250 ML IV SCH ×3 (05:40→20:53)
[2021-08-24 06:09] LABS: Band Neutrophils % (manual) 10; Basophils % (manual) 0 (0.0-2.0); Blast Cells 0; Eosinophils % (manual) 2 (0-7); Lymphocytes % (manual) 5 (10.0-50.0); Metamyelocytes % 0; Monocytes % (manual) 2 (0-12); Myelocytes % 0; Promyelocytes % 0; Reactive Lymphocytes 0
[2021-08-24 06:11] LABS: BUN/Creatinine Ratio 41.4
[2021-08-24] MEDS: ROCURONIUM BROMIDE 1,000 MG in D5W 5% 150 ML IV SCH ×2 (06:33→11:45)
[2021-08-24] MEDS: BUDESONIDE (INHALATION) 0.5 MG/2 ML NEB NEB SCH (06:40)
[2021-08-24] MEDS: LEVOTHYROXINE SODIUM 100 MCG TAB PO SCH (06:47)
[2021-08-24] MEDS: DexAMETHasone SOD PHOS 10MG/1ML VIAL INJ IV SCH (09:26)
[2021-08-24] MEDS: FAMOTIDINE (10MG/ML) 2ML VL IV SCH ×2 (09:26→21:51)
[2021-08-24] MEDS: cefTRIAXone 1GM/50ML D5W 50 ML IV SCH (09:26)
[2021-08-24] MEDS: ASCORBIC ACID 1,000 MG TAB PO SCH (09:27)
[2021-08-24] MEDS: CHOLECALCIFEROL (VITD3) 2,000 UNIT CAP/TAB PO SCH (09:27)
[2021-08-24] MEDS: FERROUS SULFATE 300 MG/5 ML ORAL LIQ PO SCH (09:27)
[2021-08-24] MEDS: ENOXAPARIN SOD 100 MG/1 ML SYRINGE SC SCH ×2 (09:27→21:52)
[2021-08-24] MEDS ORDERED: DEXTROSE (50%) 50ML SYRG IV SCH (11:30)
[2021-08-24] MEDS: PROPOFOL 100 ML IV SCH ×4 (11:43→20:54)
[2021-08-24] MEDS: AZITHROMYCIN 500MG/ 250ML 250 ML IV SCH (11:52)
[2021-08-24] MEDS: FUROSEMIDE 40 MG/4 ML VIAL IV SCH ×2 (14:12→16:27)
[2021-08-24] MEDS ORDERED: TPN PER PHARMACY IV NR ×8 (20:00)
[2021-08-24] MEDS: TPN PER PHARMACY IV NR ×8 (20:11)
[2021-08-24] MEDS: NOREPINEPHRINE 8 MG/250ML KIT 250 ML IV SCH (21:30)
[2021-08-24] MEDS: PRAVASTATIN SODIUM 20 MG TAB PO SCH (21:52)
[2021-08-24] MEDS: INSULIN LANTUS (GLARGINE) 1 /0.01ml (100units/ml) SC SCH (21:53)
[2021-08-25] VITALS (106 sets, daily range): BP systolic 95–131; BP diastolic 46–77
[2021-08-25] MEDS: InsuLIN REG 1unit/0.01ml Soln (100units/ml) SC SCH ×4 (01:02→18:03)
[2021-08-25] MEDS: ACCU-CHEK COMFORT CURVE STRIP VI SCH ×4 (01:02→18:02)
[2021-08-25] MEDS: BUDESONIDE (INHALATION) 0.5 MG/2 ML NEB NEB SCH ×3 (01:25→22:29)
[2021-08-25 04:38] LABS: Potassium 3.8 mmol/L (3.5-5.1)
[2021-08-25 04:46] LABS: Albumin 1.9 g/dL (3.4-5.0); Calcium 7.7 mg/dL (8.5-10.1); Magnesium 2.7 mg/dL (1.6-2.6)
[2021-08-25 04:48] LABS: Bilirubin, Total 0.3 mg/dL (0.2-1.0); Phosphorus 2.8 mg/dL (2.5-4.90); Total Protein 6.4 g/dL (6.4-8.2)
[2021-08-25] MEDS: ALBUTEROL SULF 2.5 MG/0.5ML(0.5%) NEB SOLN NEB PRN ×2 (06:21→22:29)
[2021-08-25] MEDS: FUROSEMIDE 40 MG/4 ML VIAL IV SCH ×2 (06:55→18:01)
[2021-08-25] MEDS: LEVOTHYROXINE SODIUM 100 MCG TAB PO SCH (06:59)
[2021-08-25] MEDS: MIDAZOLAM DRIP 50 mg/50mL 50 ML IV SCH ×5 (08:45→20:38)
[2021-08-25] MEDS: cefTRIAXone 1GM/50ML D5W 50 ML IV SCH (09:58)
[2021-08-25] MEDS: FAMOTIDINE (10MG/ML) 2ML VL IV SCH ×2 (09:58→22:41)
[2021-08-25] MEDS: PROPOFOL 100 ML IV SCH ×5 (09:59→23:51)
[2021-08-25] MEDS: DexAMETHasone SOD PHOS 10MG/1ML VIAL INJ IV SCH (09:59)
[2021-08-25] MEDS: FERROUS SULFATE 300 MG/5 ML ORAL LIQ PO SCH (09:59)
[2021-08-25] MEDS: ASCORBIC ACID 1,000 MG TAB PO SCH (10:00)
[2021-08-25] MEDS: AZITHROMYCIN 500MG/ 250ML 250 ML IV SCH (10:00)
[2021-08-25] MEDS: ENOXAPARIN SOD 100 MG/1 ML SYRINGE SC SCH ×2 (10:00→22:41)
[2021-08-25] MEDS: CHOLECALCIFEROL (VITD3) 2,000 UNIT CAP/TAB PO SCH (10:00)
[2021-08-25] MEDS: ROCURONIUM BROMIDE 1,000 MG in D5W 5% 150 ML IV SCH (11:55)
[2021-08-25] MEDS: fentaNYL Drip 2500mCg/250mlNS 250 ML IV SCH ×2 (14:19→21:30)
[2021-08-25] MEDS ORDERED: TPN PER PHARMACY IV NR ×9 (20:00)
[2021-08-25] MEDS: NOREPINEPHRINE 8 MG/250ML KIT 250 ML IV SCH (21:30)
[2021-08-25] MEDS: PRAVASTATIN SODIUM 20 MG TAB PO SCH (22:41)
[2021-08-25] MEDS: INSULIN LANTUS (GLARGINE) 1 /0.01ml (100units/ml) SC SCH (22:43)
[2021-08-26] VITALS (106 sets, daily range): BP systolic 87–123; BP diastolic 49–77
[2021-08-26] MEDS: ACCU-CHEK COMFORT CURVE STRIP VI SCH ×4 (00:42→17:40)
[2021-08-26] MEDS: InsuLIN REG 1unit/0.01ml Soln (100units/ml) SC SCH ×4 (00:45→17:40)
[2021-08-26 04:52] LABS: Hematocrit 31.6 % (36.0-46.0); Hemoglobin 9.5 g/dL (12.2-16.2); Mean Corpuscular Hgb Conc. 30.2 g/dL (32.0-36.0); Red Blood Cells 3.81 10^6/uL (4.0-5.20)
[2021-08-26 04:54] LABS: Mean Corpuscular Hemoglobin 25.1 pg (28.0-32.0); Red Cell Distribution Width 16.3 % (11.8-14.3); White Blood Cell 13.1 10^3/uL (4.4-10.8)
[2021-08-26 05:10] LABS: Basophils % (manual) 0 (0.0-2.0); Blast Cells 0; Eosinophils % (manual) 0 (0-7); Myelocytes % 0; Promyelocytes % 0; Reactive Lymphocytes 0
[2021-08-26 05:15] LABS: Potassium 4.9 mmol/L (3.5-5.1)
[2021-08-26 05:19] LABS: Albumin 2.2 g/dL (3.4-5.0); BUN/Creatinine Ratio 47.8; Magnesium 2.4 mg/dL (1.6-2.6)
[2021-08-26 05:21] LABS: Bilirubin, Total 0.4 mg/dL (0.2-1.0); Phosphorus 6.9 mg/dL (2.5-4.90); Total Protein 7.3 g/dL (6.4-8.2)
[2021-08-26] MEDS: ALBUTEROL SULF 2.5 MG/0.5ML(0.5%) NEB SOLN NEB PRN ×2 (06:29→18:35)
[2021-08-26] MEDS: BUDESONIDE (INHALATION) 0.5 MG/2 ML NEB NEB SCH ×2 (06:29→18:35)
[2021-08-26] MEDS: FUROSEMIDE 40 MG/4 ML VIAL IV SCH ×2 (07:01→17:11)
[2021-08-26] MEDS: LEVOTHYROXINE SODIUM 100 MCG TAB PO SCH (07:02)
[2021-08-26 08:25] LABS: Band Neutrophils % (manual) 7; Lymphocytes % (manual) 7 (10.0-50.0); Metamyelocytes % 1; Monocytes % (manual) 5 (0-12)
[2021-08-26] MEDS: PROPOFOL 100 ML IV SCH (08:53)
[2021-08-26] MEDS: cefTRIAXone 1GM/50ML D5W 50 ML IV SCH (10:53)
[2021-08-26] MEDS: ASCORBIC ACID 1,000 MG TAB PO SCH (10:54)
[2021-08-26] MEDS: DexAMETHasone SOD PHOS 10MG/1ML VIAL INJ IV SCH (10:54)
[2021-08-26] MEDS: AZITHROMYCIN 500MG/ 250ML 250 ML IV SCH (10:54)
[2021-08-26] MEDS: FERROUS SULFATE 300 MG/5 ML ORAL LIQ PO SCH (10:54)
[2021-08-26] MEDS: FAMOTIDINE (10MG/ML) 2ML VL IV SCH (10:54)
[2021-08-26] MEDS: ENOXAPARIN SOD 100 MG/1 ML SYRINGE SC SCH (10:55)
[2021-08-26] MEDS: CHOLECALCIFEROL (VITD3) 2,000 UNIT CAP/TAB PO SCH (10:55)
[2021-08-26] MEDS: MIDAZOLAM DRIP 50 mg/50mL 50 ML IV SCH (13:33)
[2021-08-26] MEDS: fentaNYL Drip 2500mCg/250mlNS 250 ML IV SCH ×2 (14:45→23:01)
[2021-08-26] MEDS ORDERED: InsuLIN REG 1unit/0.01ml Soln (100units/ml) IV ONE (16:15)
[2021-08-26] MEDS ORDERED: DEXTROSE (50%) 50ML SYRG IV ONE (16:15)
[2021-08-26] MEDS ORDERED: SODIUM BICARBONATE 8.4 % INJ 50ML VIAL IV ONE (16:15)
[2021-08-26] MEDS ORDERED: CALCIUM GLUC 1,000mg/50ml-NS 50 ML IV ONE (16:15)
[2021-08-26] MEDS: ROCURONIUM BROMIDE 1,000 MG in D5W 5% 150 ML IV SCH ×2 (18:15→22:11)
[2021-08-26] MEDS ORDERED: TPN PER PHARMACY IV NR ×7 (20:00)
[2021-08-26] MEDS: NOREPINEPHRINE 8 MG/250ML KIT 250 ML IV SCH (21:30)
[2021-08-27] VITALS (77 sets, daily range): BP systolic 94–136; BP diastolic 43–82
[2021-08-27] MEDS: FAMOTIDINE (10MG/ML) 2ML VL IV SCH ×3 (01:05→23:12)
[2021-08-27] MEDS: PRAVASTATIN SODIUM 20 MG TAB PO SCH ×2 (01:05→23:12)
[2021-08-27] MEDS: INSULIN LANTUS (GLARGINE) 1 /0.01ml (100units/ml) SC SCH (01:06)
[2021-08-27] MEDS: ENOXAPARIN SOD 100 MG/1 ML SYRINGE SC SCH ×3 (01:06→23:13)
[2021-08-27] MEDS: InsuLIN REG 1unit/0.01ml Soln (100units/ml) SC SCH ×5 (01:07→23:14)
[2021-08-27] MEDS: ACCU-CHEK COMFORT CURVE STRIP VI SCH ×5 (06:15→23:13)
[2021-08-27] MEDS: FUROSEMIDE 40 MG/4 ML VIAL IV SCH ×2 (06:15→17:28)
[2021-08-27] MEDS: LEVOTHYROXINE SODIUM 100 MCG TAB PO SCH (06:16)
[2021-08-27] MEDS: ALBUTEROL SULF 2.5 MG/0.5ML(0.5%) NEB SOLN NEB PRN ×2 (07:01→22:38)
[2021-08-27] MEDS: BUDESONIDE (INHALATION) 0.5 MG/2 ML NEB NEB SCH ×2 (07:01→22:38)
[2021-08-27] MEDS: fentaNYL Drip 2500mCg/250mlNS 250 ML IV SCH ×2 (08:00→16:30)
[2021-08-27] MEDS: MIDAZOLAM DRIP 50 mg/50mL 50 ML IV SCH ×3 (08:00→16:30)
[2021-08-27] MEDS: cefTRIAXone 1GM/50ML D5W 50 ML IV SCH (09:00)
[2021-08-27] MEDS: PROPOFOL 100 ML IV SCH ×3 (09:44→16:30)
[2021-08-27 09:52] LABS: Albumin 1.9 g/dL (3.4-5.0); Calcium 8.2 mg/dL (8.5-10.1); Potassium 4.6 mmol/L (3.5-5.1)
[2021-08-27 09:55] LABS: BUN/Creatinine Ratio 60.6; Magnesium 2.2 mg/dL (1.6-2.6)
[2021-08-27 09:58] LABS: Bilirubin, Total 0.6 mg/dL (0.2-1.0); Phosphorus 2.1 mg/dL (2.5-4.90); Total Protein 6.8 g/dL (6.4-8.2)
[2021-08-27] MEDS: AZITHROMYCIN 500MG/ 250ML 250 ML IV SCH (10:29)
[2021-08-27] MEDS: DexAMETHasone SOD PHOS 10MG/1ML VIAL INJ IV SCH (10:29)
[2021-08-27] MEDS ORDERED: SODIUM PHOSP 20MEQ(15MMOL) IN NS 100 ML IV ONE (11:00)
[2021-08-27] MEDS: FERROUS SULFATE 300 MG/5 ML ORAL LIQ PO SCH (11:58)
[2021-08-27] MEDS: ASCORBIC ACID 1,000 MG TAB PO SCH (11:58)
[2021-08-27] MEDS: CHOLECALCIFEROL (VITD3) 2,000 UNIT CAP/TAB PO SCH (11:58)
[2021-08-27] MEDS: ROCURONIUM BROMIDE 1,000 MG in D5W 5% 150 ML IV SCH (17:00)
[2021-08-27] MEDS ORDERED: [UNRECOGNIZED DRUG - OTHER] IV ONE ×9 (20:00)
[2021-08-27] MEDS ORDERED: CALCIUM GLUC IV ONE ×9 (20:00)
[2021-08-27] MEDS ORDERED: POTASSIUM PHOSPHATE IV ONE ×9 (20:00)
[2021-08-27] MEDS ORDERED: SODIUM CHLORIDE IV ONE ×9 (20:00)
[2021-08-27] MEDS: NOREPINEPHRINE 8 MG/250ML KIT 250 ML IV SCH (21:30)
[2021-08-28] VITALS (106 sets, daily range): BP systolic 99–136; BP diastolic 55–108
[2021-08-28 05:15] LABS: Potassium 4.1 mmol/L (3.5-5.1)
[2021-08-28 05:22] LABS: BUN/Creatinine Ratio 67.7; Bilirubin, Total 0.2 mg/dL (0.2-1.0); Calcium 8.4 mg/dL (8.5-10.1); Magnesium 2.6 mg/dL (1.6-2.6); Phosphorus 4.1 mg/dL (2.5-4.90); Total Protein 6.9 g/dL (6.4-8.2)
[2021-08-28] MEDS: ACCU-CHEK COMFORT CURVE STRIP VI SCH ×4 (06:00→23:38)
[2021-08-28] MEDS: ALBUTEROL SULF 2.5 MG/0.5ML(0.5%) NEB SOLN NEB PRN ×2 (06:22→18:24)
[2021-08-28] MEDS: BUDESONIDE (INHALATION) 0.5 MG/2 ML NEB NEB SCH ×2 (06:23→18:24)
[2021-08-28] MEDS: FUROSEMIDE 40 MG/4 ML VIAL IV SCH ×2 (07:25→17:44)
[2021-08-28] MEDS: LEVOTHYROXINE SODIUM 100 MCG TAB PO SCH (07:25)
[2021-08-28] MEDS: InsuLIN REG 1unit/0.01ml Soln (100units/ml) SC SCH ×4 (07:29→23:36)
[2021-08-28] MEDS: cefTRIAXone 1GM/50ML D5W 50 ML IV SCH (08:50)
[2021-08-28] MEDS: fentaNYL Drip 2500mCg/250mlNS 250 ML IV SCH ×3 (08:51→23:42)
[2021-08-28] MEDS: FAMOTIDINE (10MG/ML) 2ML VL IV SCH ×2 (09:32→22:33)
[2021-08-28] MEDS: AZITHROMYCIN 500MG/ 250ML 250 ML IV SCH (09:32)
[2021-08-28] MEDS: DexAMETHasone SOD PHOS 10MG/1ML VIAL INJ IV SCH (09:32)
[2021-08-28] MEDS: ASCORBIC ACID 1,000 MG TAB PO SCH (09:33)
[2021-08-28] MEDS: ENOXAPARIN SOD 100 MG/1 ML SYRINGE SC SCH ×2 (09:33→22:34)
[2021-08-28] MEDS: FERROUS SULFATE 300 MG/5 ML ORAL LIQ PO SCH (09:33)
[2021-08-28] MEDS: CHOLECALCIFEROL (VITD3) 2,000 UNIT CAP/TAB PO SCH (09:33)
[2021-08-28] MEDS: MIDAZOLAM DRIP 50 mg/50mL 50 ML IV SCH ×5 (13:07→23:40)
[2021-08-28] MEDS: PROPOFOL 100 ML IV SCH ×4 (15:09→23:44)
[2021-08-28] MEDS ORDERED: TPN PER PHARMACY IV NR ×8 (20:00)
[2021-08-28] MEDS: ROCURONIUM BROMIDE 1,000 MG in D5W 5% 150 ML IV SCH (21:12)
[2021-08-28] MEDS: NOREPINEPHRINE 8 MG/250ML KIT 250 ML IV SCH (21:30)
[2021-08-28] MEDS: PRAVASTATIN SODIUM 20 MG TAB PO SCH (22:33)
[2021-08-28] MEDS: INSULIN LANTUS (GLARGINE) 1 /0.01ml (100units/ml) SC SCH (23:35)
[2021-08-29] VITALS (102 sets, daily range): BP systolic 92–125; BP diastolic 49–82
[2021-08-29] MEDS: MIDAZOLAM DRIP 50 mg/50mL 50 ML IV SCH ×5 (01:49→15:53)
[2021-08-29] MEDS: PROPOFOL 100 ML IV SCH ×2 (02:52→13:15)
[2021-08-29 04:34] LABS: Potassium 4.1 mmol/L (3.5-5.1)
[2021-08-29 04:38] LABS: BUN/Creatinine Ratio 81.5; Calcium 8.3 mg/dL (8.5-10.1); Magnesium 2.2 mg/dL (1.6-2.6)
[2021-08-29 04:41] LABS: Bilirubin, Total 0.3 mg/dL (0.2-1.0); Phosphorus 3.3 mg/dL (2.5-4.90); Total Protein 6.9 g/dL (6.4-8.2)
[2021-08-29] MEDS: FUROSEMIDE 40 MG/4 ML VIAL IV SCH ×2 (06:04→18:13)
[2021-08-29] MEDS: InsuLIN REG 1unit/0.01ml Soln (100units/ml) SC SCH ×3 (06:05→18:22)
[2021-08-29] MEDS: ACCU-CHEK COMFORT CURVE STRIP VI SCH ×3 (06:05→18:20)
[2021-08-29] MEDS: LEVOTHYROXINE SODIUM 100 MCG TAB PO SCH (07:00)
[2021-08-29] MEDS: fentaNYL Drip 2500mCg/250mlNS 250 ML IV SCH ×2 (08:43→16:20)
[2021-08-29] MEDS: cefTRIAXone 1GM/50ML D5W 50 ML IV SCH (08:49)
[2021-08-29] MEDS: DexAMETHasone SOD PHOS 10MG/1ML VIAL INJ IV SCH (09:48)
[2021-08-29] MEDS: CHOLECALCIFEROL (VITD3) 2,000 UNIT CAP/TAB PO SCH (09:48)
[2021-08-29] MEDS: FAMOTIDINE (10MG/ML) 2ML VL IV SCH ×2 (09:48→21:33)
[2021-08-29] MEDS: FERROUS SULFATE 300 MG/5 ML ORAL LIQ PO SCH (09:48)
[2021-08-29] MEDS: ENOXAPARIN SOD 100 MG/1 ML SYRINGE SC SCH ×2 (09:48→21:34)
[2021-08-29] MEDS: ASCORBIC ACID 1,000 MG TAB PO SCH (09:48)
[2021-08-29] MEDS: AZITHROMYCIN 500MG/ 250ML 250 ML IV SCH (09:50)
[2021-08-29] MEDS: ROCURONIUM BROMIDE 1,000 MG in D5W 5% 150 ML IV SCH (13:14)
[2021-08-29] MEDS ORDERED: TPN PER PHARMACY IV NR ×9 (20:00)
[2021-08-29] MEDS: NOREPINEPHRINE 8 MG/250ML KIT 250 ML IV SCH (21:30)
[2021-08-29] MEDS: PRAVASTATIN SODIUM 20 MG TAB PO SCH (21:33)
[2021-08-29] MEDS: INSULIN LANTUS (GLARGINE) 1 /0.01ml (100units/ml) SC SCH (21:34)
[2021-08-29] MEDS: ALBUTEROL SULF 2.5 MG/0.5ML(0.5%) NEB SOLN NEB PRN (22:07)
[2021-08-29] MEDS: BUDESONIDE (INHALATION) 0.5 MG/2 ML NEB NEB SCH (22:08)
[2021-08-30] VITALS (106 sets, daily range): BP systolic 89–145; BP diastolic 42–84
[2021-08-30] MEDS: ACCU-CHEK COMFORT CURVE STRIP VI SCH ×4 (00:16→18:00)
[2021-08-30] MEDS: InsuLIN REG 1unit/0.01ml Soln (100units/ml) SC SCH ×4 (00:30→18:00)
[2021-08-30] MEDS: fentaNYL Drip 2500mCg/250mlNS 250 ML IV SCH ×3 (01:41→17:31)
[2021-08-30] MEDS: PROPOFOL 100 ML IV SCH ×4 (01:41→22:56)
[2021-08-30] MEDS: ALBUTEROL SULF 2.5 MG/0.5ML(0.5%) NEB SOLN NEB PRN ×4 (02:14→23:51)
[2021-08-30] MEDS: ROCURONIUM BROMIDE 1,000 MG in D5W 5% 150 ML IV SCH ×2 (03:46→18:42)
[2021-08-30 04:58] LABS: Mean Corpuscular Volume 83.1 fL (80.0-100.0); White Blood Cell 10.4 10^3/uL (4.4-10.8)
[2021-08-30 05:01] LABS: Hematocrit 29.1 % (36.0-46.0); Mean Corpuscular Hemoglobin 25.7 pg (28.0-32.0); Mean Corpuscular Hgb Conc. 30.9 g/dL (32.0-36.0); Red Cell Distribution Width 16.3 % (11.8-14.3)
[2021-08-30 05:17] LABS: Basophils % (manual) 0 (0.0-2.0); Blast Cells 0; Myelocytes % 0; Promyelocytes % 0; Reactive Lymphocytes 0
[2021-08-30 05:20] LABS: Potassium 5.1 mmol/L (3.5-5.1)
[2021-08-30 05:28] LABS: Albumin 1.9 g/dL (3.4-5.0); BUN/Creatinine Ratio 73.7; Bilirubin, Total 0.4 mg/dL (0.2-1.0); Calcium 8.1 mg/dL (8.5-10.1); Magnesium 2.9 mg/dL (1.6-2.6); Phosphorus 3.1 mg/dL (2.5-4.90); Total Protein 6.9 g/dL (6.4-8.2)
[2021-08-30 05:32] LABS: Pre Albumin 23.4 mg/dL (20.0-40.0)
[2021-08-30] MEDS: FUROSEMIDE 40 MG/4 ML VIAL IV SCH (06:18)
[2021-08-30] MEDS: LEVOTHYROXINE SODIUM 100 MCG TAB PO SCH (06:20)
[2021-08-30] MEDS: MIDAZOLAM DRIP 50 mg/50mL 50 ML IV SCH ×4 (06:28→17:29)
[2021-08-30] MEDS: BUDESONIDE (INHALATION) 0.5 MG/2 ML NEB NEB SCH ×2 (06:32→23:51)
[2021-08-30 08:28] LABS: Band Neutrophils % (manual) 7; Eosinophils % (manual) 3 (0-7); Lymphocytes % (manual) 11 (10.0-50.0); Metamyelocytes % 4; Monocytes % (manual) 10 (0-12)
[2021-08-30] MEDS: cefTRIAXone 1GM/50ML D5W 50 ML IV SCH (09:00)
[2021-08-30] MEDS: FAMOTIDINE (10MG/ML) 2ML VL IV SCH ×2 (09:49→21:56)
[2021-08-30] MEDS: DexAMETHasone SOD PHOS 10MG/1ML VIAL INJ IV SCH (09:49)
[2021-08-30] MEDS: FERROUS SULFATE 300 MG/5 ML ORAL LIQ PO SCH (09:49)
[2021-08-30] MEDS: ASCORBIC ACID 1,000 MG TAB PO SCH (09:49)
[2021-08-30] MEDS: CHOLECALCIFEROL (VITD3) 2,000 UNIT CAP/TAB PO SCH (09:50)
[2021-08-30] MEDS: FUROSEMIDE INJECTION 100 MG in D5W 5% 100 ML IV SCH (14:48)
[2021-08-30] MEDS: NOREPINEPHRINE 8 MG/250ML KIT 250 ML IV SCH (15:51)
[2021-08-30] MEDS ORDERED: TPN PER PHARMACY IV NR ×7 (20:00)
[2021-08-30] MEDS: PRAVASTATIN SODIUM 20 MG TAB PO SCH (21:56)
[2021-08-30] MEDS: INSULIN LANTUS (GLARGINE) 1 /0.01ml (100units/ml) SC SCH (22:12)
[2021-08-31] VITALS (101 sets, daily range): BP systolic 78–128; BP diastolic 34–76
[2021-08-31] MEDS: ACCU-CHEK COMFORT CURVE STRIP VI SCH ×5 (00:17→23:44)
[2021-08-31] MEDS: InsuLIN REG 1unit/0.01ml Soln (100units/ml) SC SCH ×5 (00:18→23:45)
[2021-08-31] MEDS: MIDAZOLAM DRIP 50 mg/50mL 50 ML IV SCH ×4 (01:50→20:30)
[2021-08-31] MEDS: fentaNYL Drip 2500mCg/250mlNS 250 ML IV SCH ×2 (03:23→20:28)
[2021-08-31 04:33] LABS: Hematocrit 29.8 % (36.0-46.0); Mean Corpuscular Hemoglobin 24.7 pg (28.0-32.0); Mean Corpuscular Hgb Conc. 30.3 g/dL (32.0-36.0); Mean Corpuscular Volume 81.5 fL (80.0-100.0); Red Blood Cells 3.66 10^6/uL (4.0-5.20); White Blood Cell 14.5 10^3/uL (4.4-10.8)
[2021-08-31 04:37] LABS: Basophils % (manual) 0 (0.0-2.0); Blast Cells 0; Eosinophils % (manual) 0 (0-7); Promyelocytes % 0; Reactive Lymphocytes 0
[2021-08-31 04:58] LABS: Calcium 8.3 mg/dL (8.5-10.1); Magnesium 2.2 mg/dL (1.6-2.6); Potassium 3.6 mmol/L (3.5-5.1)
[2021-08-31 05:00] LABS: BUN/Creatinine Ratio 71.2
[2021-08-31 05:03] LABS: Bilirubin, Total 0.3 mg/dL (0.2-1.0); Phosphorus 2.9 mg/dL (2.5-4.90); Total Protein 6.8 g/dL (6.4-8.2)
[2021-08-31] MEDS: ROCURONIUM BROMIDE 1,000 MG in D5W 5% 150 ML IV SCH ×2 (06:02→20:32)
[2021-08-31] MEDS: LEVOTHYROXINE SODIUM 100 MCG TAB PO SCH (06:12)
[2021-08-31] MEDS: PROPOFOL 100 ML IV SCH ×3 (06:13→20:29)
[2021-08-31] MEDS: BUDESONIDE (INHALATION) 0.5 MG/2 ML NEB NEB SCH ×2 (06:29→22:20)
[2021-08-31] MEDS: ALBUTEROL SULF 2.5 MG/0.5ML(0.5%) NEB SOLN NEB PRN ×2 (06:29→22:20)
[2021-08-31] MEDS: CHOLECALCIFEROL (VITD3) 2,000 UNIT CAP/TAB PO SCH (10:00)
[2021-08-31] MEDS: FERROUS SULFATE 300 MG/5 ML ORAL LIQ PO SCH (10:00)
[2021-08-31] MEDS: FAMOTIDINE (10MG/ML) 2ML VL IV SCH ×2 (10:00→22:13)
[2021-08-31] MEDS: ASCORBIC ACID 1,000 MG TAB PO SCH (10:00)
[2021-08-31 10:55] LABS: Band Neutrophils % (manual) 7; Lymphocytes % (manual) 3 (10.0-50.0); Metamyelocytes % 1; Monocytes % (manual) 9 (0-12); Myelocytes % 3
[2021-08-31] MEDS: NOREPINEPHRINE 8 MG/250ML KIT 250 ML IV SCH (17:58)
[2021-08-31] MEDS: TPN PER PHARMACY IV NR ×7 (20:35)
[2021-08-31] MEDS: FUROSEMIDE INJECTION 100 MG in D5W 5% 100 ML IV SCH (20:35)
[2021-08-31] MEDS: PHENYLEPHRINE IV 250 ML IV SCH ×2 (20:38→23:50)
[2021-08-31] MEDS: PRAVASTATIN SODIUM 20 MG TAB PO SCH (22:00)
[2021-08-31] MEDS ORDERED: VASOPRESSIN 20 UNIT/ML ONE (23:15)
[2021-08-31] MEDS: INSULIN LANTUS (GLARGINE) 1 /0.01ml (100units/ml) SC SCH (23:48)
[2021-08-31] MEDS: VASOPRESSIN 50 UNITS in D5W 5% 247.5 ML IV SCH (23:59)
[2021-09-01] VITALS (99 sets, daily range): BP systolic 33–112; BP diastolic 19–50
[2021-09-01] MEDS: PROPOFOL 100 ML IV SCH ×5 (01:14→21:17)
[2021-09-01] MEDS: NOREPINEPHRINE 8 MG/250ML KIT 250 ML IV SCH ×5 (01:51→22:51)
[2021-09-01] MEDS: EPINEPHrine HCL 250 ML IV SCH ×3 (01:54→22:14)
[2021-09-01] MEDS: MIDAZOLAM DRIP 50 mg/50mL 50 ML IV SCH ×5 (02:15→21:39)
[2021-09-01] MEDS: FUROSEMIDE INJECTION 100 MG in D5W 5% 100 ML IV SCH (04:45)
[2021-09-01] MEDS: PHENYLEPHRINE IV 250 ML IV SCH ×3 (04:51→08:14)
[2021-09-01] MEDS: InsuLIN REG 1unit/0.01ml Soln (100units/ml) SC SCH ×4 (06:27→23:39)
[2021-09-01] MEDS: ACCU-CHEK COMFORT CURVE STRIP VI SCH ×4 (06:27→23:39)
[2021-09-01] MEDS: LEVOTHYROXINE SODIUM 100 MCG TAB PO SCH (06:28)
[2021-09-01] MEDS: BUDESONIDE (INHALATION) 0.5 MG/2 ML NEB NEB SCH ×2 (06:51→22:05)
[2021-09-01] MEDS: ALBUTEROL SULF 2.5 MG/0.5ML(0.5%) NEB SOLN NEB PRN ×2 (06:51→22:05)
[2021-09-01] MEDS: ROCURONIUM BROMIDE 1,000 MG in D5W 5% 150 ML IV SCH ×2 (07:32→20:49)
[2021-09-01] MEDS: VASOPRESSIN 50 UNITS in D5W 5% 247.5 ML IV SCH ×2 (08:13→18:07)
[2021-09-01] MEDS: PHENYLEPHRINE INJ 80 MG in SODIUM CHL 0.9% 242 ML IV SCH ×3 (09:04→21:39)
[2021-09-01] MEDS: ASCORBIC ACID 1,000 MG TAB PO SCH (09:05)
[2021-09-01] MEDS: CHOLECALCIFEROL (VITD3) 2,000 UNIT CAP/TAB PO SCH (09:05)
[2021-09-01] MEDS: FAMOTIDINE (10MG/ML) 2ML VL IV SCH ×2 (09:05→22:37)
[2021-09-01] MEDS: FERROUS SULFATE 300 MG/5 ML ORAL LIQ PO SCH (09:05)
[2021-09-01] MEDS ORDERED: SODIUM BICARBONATE 8.4 % INJ 50ML VIAL IV ONE (10:30)
[2021-09-01] MEDS: fentaNYL Drip 2500mCg/250mlNS 250 ML IV SCH ×3 (10:52→20:22)
[2021-09-01 12:21] LABS: Albumin 1.7 g/dL (3.4-5.0); Calcium 6.8 mg/dL (8.5-10.1); Magnesium 2.8 mg/dL (1.6-2.6); Potassium 5.1 mmol/L (3.5-5.1)
[2021-09-01 12:44] LABS: BUN/Creatinine Ratio 28.4; Bilirubin, Total 0.8 mg/dL (0.2-1.0); Total Protein 5.6 g/dL (6.4-8.2)
[2021-09-01 13:12] LABS: Phosphorus 9.2 mg/dL (2.5-4.90)
[2021-09-01] MEDS: DOPamine 1600MCG/ML D5W 250 ML IV SCH ×3 (13:15→22:14)
[2021-09-01] MEDS ORDERED: BUMETANIDE 2.5mg/10ml (0.25 mg/ml) INJ IV ONE (13:45)
[2021-09-01] MEDS ORDERED: SODIUM CHLORIDE 0.9% 1,000 ML IV SCH (18:45)
[2021-09-01] MEDS ORDERED: TPN PER PHARMACY IV NR ×6 (20:00)
[2021-09-01] MEDS: PRAVASTATIN SODIUM 20 MG TAB PO SCH (20:23)
[2021-09-01] MEDS: TPN PER PHARMACY IV NR ×7 (20:23)
[2021-09-01] MEDS: INSULIN LANTUS (GLARGINE) 1 /0.01ml (100units/ml) SC SCH (22:00)
[2021-09-02] MEDS: DOPamine 1600MCG/ML D5W 250 ML IV SCH (00:29)
[2021-09-02] MEDS: PROPOFOL 100 ML IV SCH (00:29)
[2021-09-02 00:30] VITALS: BP 57/21
[2021-09-02 01:00] VITALS: BP 63/17
[2021-09-02] MEDS: MIDAZOLAM DRIP 50 mg/50mL 50 ML IV SCH (01:05)
[2021-09-02] MEDS ORDERED: SODIUM BICARBONATE 8.4% INJ 50ML SYRINGE IV ONE (12:55)
[2021-09-02] MEDS ORDERED: CALCIUM CHLOR(10%) 100MG/ML 10ML SYRINGE IV ONE (12:55)
[2021-09-02] MEDS ORDERED: EPINEPHrine HCL 1 MG/10 ML SYRG IV ONE (12:55)
== END 2021-09-02 13:34 | DRG 130 ==
LOC: ER 09:18 → TELE 12:13 → TELE-EAST 20:35 → ICU WEST 08-15 20:20
PROVIDERS: ADMIT Nurse Practitioner Acute Care; ATTEND Internal Medicine
PROC: XW033E5 Introduction of Remdesivir Anti-infective into Peripheral Vein, Percutaneous Approach, New Technology Group 5 (ICD-10-PCS; 2021-08-14)
PROC: 5A1955Z Respiratory Ventilation, Greater than 96 Consecutive Hours (ICD-10-PCS; principal; 2021-08-15)
PROC: 5A09357 Assistance with Respiratory Ventilation, Less than 24 Consecutive Hours, Continuous Positive Airway Pressure (ICD-10-PCS; 2021-08-15)
PROC: 0BH17EZ Insertion of Endotracheal Airway into Trachea, Via Natural or Artificial Opening (ICD-10-PCS; 2021-08-15)
PROC: 4A133B1 Monitoring of Arterial Pressure, Peripheral, Percutaneous Approach (ICD-10-PCS; 2021-08-15)
PROC: 4A133J1 Monitoring of Arterial Pulse, Peripheral, Percutaneous Approach (ICD-10-PCS; 2021-08-15)
PROC: 03HY32Z Insertion of Monitoring Device into Upper Artery, Percutaneous Approach (ICD-10-PCS; 2021-08-15)
PROC: 5A12012 Performance of Cardiac Output, Single, Manual (ICD-10-PCS; 2021-09-02)
PROC: 05HN33Z Insertion of Infusion Device into Left Internal Jugular Vein, Percutaneous Approach (ICD-10-PCS; 2021-09-02)
PROC: B544ZZA Ultrasonography of Left Jugular Veins, Guidance (ICD-10-PCS; 2021-09-02)
DX: U07.1 COVID-19 (principal); J12.82 Pneumonia due to coronavirus disease 2019; N17.0 Acute kidney failure with tubular necrosis; E44.1 Mild protein-calorie malnutrition; D89.839 Cytokine release syndrome, grade unspecified; E87.4 Mixed disorder of acid-base balance; Z99.11 Dependence on respirator [ventilator] status; J96.01 Acute respiratory failure with hypoxia; J44.0 Chronic obstructive pulmonary disease with (acute) lower respiratory infection; J44.1 Chronic obstructive pulmonary disease with (acute) exacerbation; E11.65 Type 2 diabetes mellitus with hyperglycemia; E87.6 Hypokalemia; E66.01 Morbid (severe) obesity due to excess calories; Z68.41 Body mass index [BMI] 40.0-44.9, adult; D64.9 Anemia, unspecified; R74.01 Elevation of levels of liver transaminase levels; R74.8 Abnormal levels of other serum enzymes; R79.89 Other specified abnormal findings of blood chemistry; Z20.822 Contact with and (suspected) exposure to COVID-19; E78.5 Hyperlipidemia, unspecified; Z88.1 Allergy status to other antibiotic agents; Z98.51 Tubal ligation status; Z82.49 Family history of ischemic heart disease and other diseases of the circulatory system; Z79.51 Long term (current) use of inhaled steroids; Z83.3 Family history of diabetes mellitus; Z79.899 Other long term (current) drug therapy; I46.9 Cardiac arrest, cause unspecified; E87.5 Hyperkalemia
CPT/HCPCS: 36415; 36600; 71045; 80053; 81001; 82040; 82728; 82805; 82962; 83036; 83605; 83615; 83735; 84100; 84132; 84478; 84484; 85007; 85025; 85027; 85379; 85610; 85730; 86141; 86850; 86900; 86901; 87040; 87070; 87077; 87081; 87186; 87205; 87426; 87804; 92950; 93005; 93970; 94002; 94003; 94640; 94660; 96365; 96366; 96368; 96375; 99291; G0378; J0171; J0330; J0696; J1100; J1815; J2250; J2405; J2704; J3480; J3490; J7060; J7131